=== PATIENT | male | born 1950 | race Two or more races ===

== ENCOUNTER 2016-08-05 14:13 | Emergency (ER) | payer BC, OTHER ==
[2016-08-05] MEDS ORDERED: Ketorolac 60 MG/2 ML SDV IM ONE (14:49)
--- NOTE | 2016-08-05 15:50 | EDM.PDOC ---
ED HPI Trauma - General Chief Complaint: Upper Extremity Injury/Pain Stated Complaint: HURT LEFT SHOULDER AT WORK Time Seen by Provider: 08/05/16 14:45 Source: Reports: Patient History Limitations: Reports: No limitations - History of Present Illness INITIAL COMMENTS - FREE TEXT/NARRATIVE: History of present illness: [66 year-old male comes in complaining of left-sided shoulder pain status post lifting frozen meat at work. Patient indicates that it hurts to move the arm in full range of motion indicates that he can bring elbow to midline but beyond that he needs to manually assist with opposing arm] Review of systems: As per history of present illness and below otherwise all systems reviewed and negative. Past medical history: As per history of present illness and as reviewed below otherwise noncontributory. Surgical history: As per history of present illness and as reviewed below otherwise noncontributory. Social history: No reported history of drug or alcohol abuse. Family history: As per history of present illness and as reviewed below otherwise noncontributory. Physical exam: HEENT: Atraumatic, normocephalic, pupils reactive, negative for conjunctival pallor or scleral icterus, mucous membranes moist, throat clear, neck supple, nontender, trachea midline. Lungs: Clear to auscultation, breath sounds equal bilaterally, chest nontender. Heart: S1S2, regular, negative for clicks, rubs, or JVD. Abdomen: Soft, nondistended, nontender. Negative for masses or hepatosplenomegaly. Negative for costovertebral tenderness. Pelvis: Stable nontender. Genitourinary: Deferred. Rectal: Deferred. Extremities: Atraumatic, negative for cords or calf pain. Neurovascular unremarkable. Neuro: Awake, alert, oriented. Cranial nerves II through XII unremarkable. Cerebellum unremarkable. Motor and sensory unremarkable throughout. Exam nonfocal. Global assessment was benign save as noted in history of present illness. Patient exhibits guarding and indications of discomfort with passive as well as active range of motion unable to left elbow above midline without significant statements and indications a pain. X-ray negative for acute bony abnormalities presence of degenerative osteophytic changes noted in the a.c. Diagnostics: [X-ray will show] Therapeutics: [Toradol] Impression: [Shoulder pain] Plan: [Meloxicam] Definitive disposition and diagnosis as appropriate pending reevaluation and review of above. Allergies/ADRs: Allergies No Known Allergies Allergy (Verified 08/05/16 14:32) Home Medications: Ambulatory Orders Meloxicam 7.5 mg PO BID #30 tablet 08/05/16 Past Medical History HEENT History: Reports: None Cardiovascular History: Reports: None Respiratory History: Reports: None Genitourinary History: Reports: None Musculoskeletal History: Reports: None Neurological History: Reports: None Psychiatric History: Reports: None Other Endocrine/Metabolic History: pt reports diabetes but does not take medication for this Hematologic History: Reports: None Immunologic History: Reports: None Oncologic (Cancer) History: Reports: None Dermatologic History: Reports: None - Infectious Disease History Infectious Disease History: Reports: None - Past Surgical History Head Surgeries/Procedures: Reports: None GI Surgical History: Reports: Appendectomy Social & Family History - Family History Family Medical History: Noncontributory - Tobacco Use Smoking Status *Q: Former Smoker Years of Tobacco use: 20 Used Tobacco, but Quit: Yes Month Tobacco Last Used: 1972 - Caffeine Use Caffeine Use: Reports: Coffee - Recreational Drug Use Recreational Drug Use: No Review of Systems - Review of Systems Review Of Systems: See Below (See history of present illness) Trauma Exam - Physical Exam Exam: See Below (See history of present illness) Course - Vital Signs Last Recorded V/S: Last Vital Signs Temp 36.6 C 08/05/16 14:23 Pulse 80 08/05/16 14:23 Resp 16 08/05/16 14:23 BP 146/75 H 08/05/16 14:23 Pulse Ox 98 08/05/16 14:23 - Orders/Labs/Meds Orders: Active Orders 24 hr Category Date Time Status Shoulder Comp Lt [CR] Stat Exams 08/05/16 14:50 Taken Meds: Medications Discontinued Medications Generic Name Dose Route Start Last Admin Trade Name Freq PRN Reason Stop Dose Admin Ketorolac Tromethamine 60 mg 08/05/16 14:49 08/05/16 15:16 Toradol IM 08/05/16 14:50 60 mg ONETIME ONE Administration Departure - Departure Time of Disposition: 15:59 Disposition: Home, Self-Care 01 Condition: good Clinical Impression: Shoulder pain Forms: ED Department Discharge Additional Instructions: The following information is given to patients seen in the emergency department who are being discharged to home. This information is to outline your options for follow-up care. We provide all patients seen in our emergency department with a follow-up referral. The need for follow-up, as well as the timing and circumstances, are variable depending upon the specifics of your emergency department visit. If you don't have a primary care physician on staff, we will provide you with a referral. We always advise you to contact your personal physician following an emergency department visit to inform them of the circumstance of the visit and for follow-up with them and/or the need for any referrals to a consulting specialist. The emergency department will also refer you to a specialist when appropriate. This referral assures that you have the opportunity for follow-up care with a specialist. All of these measure are taken in an effort to provide you with optimal care, which includes your follow-up. Under all circumstances we always encourage you to contact your private physician who remains a resource for coordinating your care. When calling for follow-up care, please make the office aware that this follow-up is from your recent emergency room visit. If for any reason you are refused follow-up, please contact the [facility] Emergency Department at and asked to speak to the emergency department charge nurse. Take medication as directed With PCP 1-2 days Return to ED as needed as discussed - My Orders Last 24 Hours: My Active Orders 08/05/16 14:50 Shoulder Comp Lt [CR] Stat - Assessment/Plan Last 24 Hours: My Active Orders 08/05/16 14:50 Shoulder Comp Lt [CR] Stat
[2016-08-05 16:16] VITALS: BP 136/65
--- NOTE | 2016-08-07 10:17 | CR ---
EXAM DATE: 08/05/16 PATIENT'S AGE: 66 Patient: ARTEM DOE Facility: [place], [place] Site . Site : 1950 Study: XRay Shoulder Left [id number] 3:04:26 PM Ordering Physician: Doctor Combs Final Report: HISTORY: Pain after lifting injury. Findings: Three views of the left shoulder are provided. There are no findings for fracture or dislocation. Mild degenerative change of the acromioclavicular joint is noted. No soft tissue abnormality is noted. Dictated by Nikko Morataya MD @ Aug 05 2016 3:46PM (Electronic Signature) Report Signed by Proxy and Original Signed Document filed in the Medical Record. MTDD
== END 2016-08-05 16:16 | disposition home or self-care (01) ==
LOC: MW.ED 14:13
DX: M25.512 Pain in left shoulder (principal); Z90.49 Acquired absence of other specified parts of digestive tract; Z87.891 Personal history of nicotine dependence
CPT/HCPCS: 73030; 96372; 99283; A4566; J1885

== ENCOUNTER 2016-09-05 12:31 | Inpatient (IN) | payer BC, OTHER ==
[2016-09-05] MEDS ORDERED: Sodium Chloride 0.9% 1,000 ML IV ONE ×3 (13:16→16:01)
[2016-09-05] MEDS ORDERED: Ondansetron 4 MG/2 ML SDV IVPUSH ONE ×2 (13:16→13:33)
[2016-09-05] MEDS ORDERED: Prochlorperazine 10 MG/2 ML SDV IVPUSH ONE (13:33)
--- NOTE | 2016-09-05 13:51 | EDM.PDOC ---
ED HPI GENERAL MEDICAL PROBLEM - General Chief Complaint: Gastrointestinal Problem Stated Complaint: STOMACHE,BACKACHE,DIARRHEA, N&v Time Seen by Provider: 09/05/16 13:10 Source of Information: Reports: Patient History Limitations: Reports: No Limitations - History of Present Illness INITIAL COMMENTS - FREE TEXT/NARRATIVE: History of present illness: [66-year-old male presenting with acute onset of nausea vomiting. Patient indicates he has abdominal pain that is radiating around into his back.] Review of systems: As per history of present illness and below otherwise all systems reviewed and negative. Past medical history: As per history of present illness and as reviewed below otherwise noncontributory. Surgical history: As per history of present illness and as reviewed below otherwise noncontributory. Social history: No reported history of drug or alcohol abuse. Family history: As per history of present illness and as reviewed below otherwise noncontributory. Physical exam: HEENT: Atraumatic, normocephalic, pupils reactive, negative for conjunctival pallor or scleral icterus, mucous membranes moist, throat clear, neck supple, nontender, trachea midline. Lungs: Clear to auscultation, breath sounds equal bilaterally, chest nontender. Heart: S1S2, regular, negative for clicks, rubs, or JVD. Abdomen: Firm slightly distended with diffuse non specific tenderness. Pt with active vomiting. Negative for masses or hepatosplenomegaly. Negative for costovertebral tenderness. Pelvis: Stable nontender. Genitourinary: Deferred. Rectal: Deferred. Extremities: Atraumatic, negative for cords or calf pain. Neurovascular unremarkable. Neuro: Awake, alert, oriented. Cranial nerves II through XII unremarkable. Cerebellum unremarkable. Motor and sensory unremarkable throughout. Exam nonfocal. Diagnostics: [CBC, CMP] Therapeutics: [IV fluid, Zofran, Compazine] Impression: [pancreatitis] Plan: [Admit to Dr. Thomas] Definitive disposition and diagnosis as appropriate pending reevaluation and review of above. Lower Abdominal Pain Score (Numeric/FACES): 10 - Related Data Allergies Allergy/AdvReac Type Severity Reaction Status Date / Time No Known Allergies Allergy Verified 08/05/16 14:32 Past Medical History HEENT History: Reports: None Cardiovascular History: Reports: None Respiratory History: Reports: None Genitourinary History: Reports: None Musculoskeletal History: Reports: None Neurological History: Reports: None Psychiatric History: Reports: None Other Endocrine/Metabolic History: pt reports diabetes but does not take medication for this Hematologic History: Reports: None Immunologic History: Reports: None Oncologic (Cancer) History: Reports: None Dermatologic History: Reports: None - Infectious Disease History Infectious Disease History: Reports: None - Past Surgical History Head Surgeries/Procedures: Reports: None GI Surgical History: Reports: Appendectomy Social & Family History - Family History Family Medical History: Noncontributory - Tobacco Use Smoking Status *Q: Never Smoker Years of Tobacco use: 20 Used Tobacco, but Quit: Yes Month Tobacco Last Used: 1972 Second Hand Smoke Exposure: No - Caffeine Use Caffeine Use: Reports: None - Recreational Drug Use Recreational Drug Use: No ED ROS GENERAL - Review of Systems Review Of Systems: See Below (See history of present illness) ED EXAM, GENERAL - Physical Exam Exam: See Below (See history of present illness) Course - Vital Signs Last Recorded V/S: Last Vital Signs Temp Pulse 101 H 09/05/16 14:35 Resp 19 09/05/16 14:35 BP 150/69 H 09/05/16 14:35 Pulse Ox 95 09/05/16 14:35 - Orders/Labs/Meds Orders: Active Orders 24 hr Category Date Time Status AMYLASE [CHEM] Stat Lab 09/05/16 12:50 Results LIPASE [CHEM] Stat Lab 09/05/16 12:50 Results Sodium Chloride 0.9% [Normal Saline] 1,000 ml Med 09/05/16 16:01 Ordered IV STAT Medication Orders Sodium Chloride (Normal Saline) 1,000 mls @ 999 mls/hr IV STAT ONE Stop: 09/05/16 17:01 Labs: Laboratory Tests 09/05/16 09/05/16 09/05/16 Range/Units 12:50 12:50 12:50 WBC 7.57 (4.0-11.0) K/uL RBC 4.65 (4.50-5.90) M/uL Hgb 13.4 (13.0-17.0) g/dL Hct 38.6 (38.0-50.0) % MCV 83.0 (80.0-98.0) fL MCH 28.8 (27.0-32.0) pg MCHC 34.7 (31.0-37.0) g/dL RDW Std Deviation 40.5 (28.0-62.0) fl RDW Coeff of [place] 13 (11.0-15.0) % Plt Count 282 (150-400) K/uL MPV 10.30 (7.40-12.00) fL Neut % (Auto) 86.3 H (48.0-80.0) % Lymph % (Auto) 12.4 L (16.0-40.0) % [place] % (Auto) 0.8 (0.0-15.0) % Eos % (Auto) 0.4 (0.0-7.0) % Baso % (Auto) 0.1 (0.0-1.5) % Neut # (Auto) 6.5 H (1.4-5.7) K/uL Lymph # (Auto) 0.9 (0.6-2.4) K/uL [place] # (Auto) 0.1 (0.0-0.8) K/uL Eos # (Auto) 0.0 (0.0-0.7) K/uL Baso # (Auto) 0.0 (0.0-0.1) K/uL Nucleated RBC % 0.0 /100WBC Nucleated RBCs # 0 K/uL Sodium 140 (136-146) mmol/L Potassium 3.2 L (3.5-5.1) mmol/L Chloride 106 (98-110) mmol/L Carbon Dioxide 21 (21-31) mmol/L BUN 30 H (6.0-23.0) mg/dL Creatinine 1.4 (0.6-1.5) mg/dL Est Cr Clr Drug Dosing TNP Estimated GFR (MDRD) 51.0 ml/min Glucose 330 H (60-110) mg/dL Calcium 9.5 (8.8-10.8) mg/dL Total Bilirubin 1.4 (0.1-1.5) mg/dL AST 217 H (5-40) IU/L ALT 138 H (8-54) IU/L Alkaline Phosphatase 80 (40-150) Total Protein 7.4 (6.0-8.0) g/dL Albumin 4.0 (3.4-4.8) g/dL Globulin 3.4 (2.0-3.5) g/dL Albumin/Globulin Ratio 1.2 L (1.3-2.8) Amylase 4752 H (10-90) U/L Meds: Medications Generic Name Dose Route Start Last Admin Trade Name Freq PRN Reason Stop Dose Admin Sodium Chloride 1,000 mls @ 999 mls/hr 09/05/16 16:01 Normal Saline IV 09/05/16 17:01 STAT ONE Discontinued Medications Generic Name Dose Route Start Last Admin Trade Name Freq PRN Reason Stop Dose Admin Sodium Chloride 1,000 mls @ 999 mls/hr 09/05/16 13:16 09/05/16 13:30 Normal Saline IV 09/05/16 14:16 999 mls/hr STAT ONE Administration Sodium Chloride 1,000 mls @ 999 mls/hr 09/05/16 13:16 09/05/16 13:38 Normal Saline IV 09/05/16 14:16 Not Given .Bolus ONE Ondansetron HCl 4 mg 09/05/16 13:16 09/05/16 13:31 Zofran IVPUSH 09/05/16 13:17 4 mg ONETIME ONE Administration Ondansetron HCl 4 mg 09/05/16 13:33 09/05/16 13:51 Zofran IVPUSH 09/05/16 13:34 4 mg ONETIME ONE Administration Prochlorperazine Edisylate 5 mg 09/05/16 13:33 09/05/16 13:51 Compazine IVPUSH 09/05/16 13:34 5 mg ONETIME ONE Administration Departure - Departure Time of Disposition: 16:11 Disposition: Admitted As Inpatient 68 Condition: good Clinical Impression: Pancreatitis - Discharge Information Forms: ED Department Discharge - My Orders Last 24 Hours: My Active Orders 09/05/16 12:50 AMYLASE [CHEM] Stat LIPASE [CHEM] Stat 09/05/16 16:01 Sodium Chloride 0.9% [Normal Saline] 1,000 ml IV STAT - Assessment/Plan Last 24 Hours: My Active Orders 09/05/16 12:50 AMYLASE [CHEM] Stat LIPASE [CHEM] Stat 09/05/16 16:01 Sodium Chloride 0.9% [Normal Saline] 1,000 ml IV STAT
[2016-09-05 14:30] LABS: CHLORIDE,CL 106 mmol/L (98-110); SODIUM,NA 140 mmol/L (136-146)
--- NOTE | 2016-09-05 14:58 | CT ---
CT of the abdomen and pelvis without contrast. HISTORY: Pain TECHNIQUE: Axial CT images were obtained of the abdomen and pelvis without contrast. Coronal and sag ittal reconstructions obtained. FINDINGS: The lung bases are clear, no pleural effusion. The liver, spleen, and adrenal glands appear unremarkable for noncontrast examination. There is mode rate peripancreatic stranding without an organized fluid collection. Trace abdominal ascites. Small duodenal diverticulum is noted. The gallbladder appears normal. There is no bulky retroperitoneal l ymphadenopathy. There are no calcifications noted within the kidneys or along the courses of the ureters bilaterally . The large and small bowel are normal in caliber without evidence of obstruction. Mild diverticulosis without evidence of diverticulitis. There is no bulky pelvic lymphadenopathy. No free fluid. No vadim e air. The urinary bladder appears normal. Prostate is mildly prominent. The visualized osseous structures appear normal. IMPRESSION: 1. Pancreatitis without evidence of a peripancreatic fluid collection. 2. Mild diverticulosis without evidence of diverticulitis.
[2016-09-05] MEDS ORDERED: Morphine 10 MG/ML Syringe IVPUSH PRN (16:36)
[2016-09-05] MEDS ORDERED: Ondansetron 4 MG/2 ML SDV IVPUSH PRN (16:36)
[2016-09-05] MEDS ORDERED: LORazepam 2 MG/ML MDV IVPUSH PRN (16:40)
[2016-09-05] MEDS ORDERED: Thiamine 200 MG/2 ML MDV IV SCH (16:45)
--- NOTE | 2016-09-05 16:45 | PCM.HP ---
H&P History of Present Illness - General Admit Problem/Dx: Admission Diagnosis/Problem Admission Diagnosis/Problem Pancreatitis - History of Present Illness Initial Comments - Free Text/Narative: 66 yo male with pmh of diabetes who presents with one day history of abdominal pain, nausea and vomiting. Patient reports he seldom drinks but did have four beers this weekend. He was evaluated in the ED with CT scan which reported pancreatitis. Lower Abdominal Pain Score (Numeric/FACES): 10 - Related Data Allergies/Adverse Reactions: Allergies Allergy/AdvReac Type Severity Reaction Status Date / Time No Known Allergies Allergy Verified 08/05/16 14:32 Past Medical History HEENT History: Reports: None Cardiovascular History: Reports: None Respiratory History: Reports: None Genitourinary History: Reports: None Musculoskeletal History: Reports: None Neurological History: Reports: None Psychiatric History: Reports: None Other Endocrine/Metabolic History: pt reports diabetes but does not take medication for this Hematologic History: Reports: None Immunologic History: Reports: None Oncologic (Cancer) History: Reports: None Dermatologic History: Reports: None - Infectious Disease History Infectious Disease History: Reports: None - Past Surgical History Head Surgeries/Procedures: Reports: None GI Surgical History: Reports: Appendectomy Social & Family History - Family History Family Medical History: Noncontributory - Tobacco Use Smoking Status *Q: Never Smoker Years of Tobacco use: 20 Used Tobacco, but Quit: Yes Month Tobacco Last Used: 1972 Second Hand Smoke Exposure: No - Caffeine Use Caffeine Use: Reports: None - Recreational Drug Use Recreational Drug Use: No H&P Review of Systems - Review of Systems: Review Of Systems: See Below General: Reports: No Symptoms HEENT: Reports: No Symptoms Pulmonary: Reports: No Symptoms Cardiovascular: Reports: No Symptoms Gastrointestinal: Reports: Abdominal Pain, Nausea, Vomiting. Denies: Black Stool, Bloody Stool, Diarrhea Genitourinary: Reports: No Symptoms Musculoskeletal: Reports: No Symptoms Skin: Reports: No Symptoms Psychiatric: Reports: No Symptoms Neurological: Reports: No Symptoms Hematologic/Lymphatic: Reports: No Symptoms Immunologic: Reports: No Symptoms Exam - Exam Exam: See Below - Vital Signs Vital Signs: Last Vital Signs Temp Pulse 101 H 09/05/16 14:35 Resp 19 09/05/16 14:35 BP 150/69 H 09/05/16 14:35 Pulse Ox 95 09/05/16 14:35 Weight: 72.3 kg - Exam General: Alert, Oriented, 4 Lungs: Clear to Auscultation, Normal Respiratory Effort Cardiovascular: Regular Rate, Regular Rhythm Abdomen: Normal Bowel Sounds, Tenderness (epigstric). No: Guarding, Rigidity Extremities: No: Edema Skin: Warm, Dry, Intact - Patient Data Lab Results last 24 hrs: Laboratory Results - last 24 hr 09/05/16 09/05/16 09/05/16 Range/Units 12:50 12:50 12:50 WBC 7.57 (4.0-11.0) K/uL RBC 4.65 (4.50-5.90) M/uL Hgb 13.4 (13.0-17.0) g/dL Hct 38.6 (38.0-50.0) % MCV 83.0 (80.0-98.0) fL MCH 28.8 (27.0-32.0) pg MCHC 34.7 (31.0-37.0) g/dL RDW Std Deviation 40.5 (28.0-62.0) fl RDW Coeff of [place] 13 (11.0-15.0) % Plt Count 282 (150-400) K/uL MPV 10.30 (7.40-12.00) fL Neut % (Auto) 86.3 H (48.0-80.0) % Lymph % (Auto) 12.4 L (16.0-40.0) % [place] % (Auto) 0.8 (0.0-15.0) % Eos % (Auto) 0.4 (0.0-7.0) % Baso % (Auto) 0.1 (0.0-1.5) % Neut # (Auto) 6.5 H (1.4-5.7) K/uL Lymph # (Auto) 0.9 (0.6-2.4) K/uL [place] # (Auto) 0.1 (0.0-0.8) K/uL Eos # (Auto) 0.0 (0.0-0.7) K/uL Baso # (Auto) 0.0 (0.0-0.1) K/uL Nucleated RBC % 0.0 /100WBC Nucleated RBCs # 0 K/uL Sodium 140 (136-146) mmol/L Potassium 3.2 L (3.5-5.1) mmol/L Chloride 106 (98-110) mmol/L Carbon Dioxide 21 (21-31) mmol/L BUN 30 H (6.0-23.0) mg/dL Creatinine 1.4 (0.6-1.5) mg/dL Est Cr Clr Drug Dosing TNP Estimated GFR (MDRD) 51.0 ml/min Glucose 330 H (60-110) mg/dL Calcium 9.5 (8.8-10.8) mg/dL Total Bilirubin 1.4 (0.1-1.5) mg/dL AST 217 H (5-40) IU/L ALT 138 H (8-54) IU/L Alkaline Phosphatase 80 (40-150) Total Protein 7.4 (6.0-8.0) g/dL Albumin 4.0 (3.4-4.8) g/dL Globulin 3.4 (2.0-3.5) g/dL Albumin/Globulin Ratio 1.2 L (1.3-2.8) Amylase 4752 H (10-90) U/L Lipase 49873 H (7-80) U/L Result Diagrams: 09/06/16 04:50 09/06/16 04:50 *Q Meaningful Use (ADM) - VTE *Q VTE Criteria *Q: - Stroke *Q Stroke Criteria *Q: - AMI *Q AMI Criteria *Q: Problem List Initiated/Reviewed/Updated: Yes Orders Last 24hrs: Active Orders 24 hr Category Date Time Status Accu Check [Blood Glucose Check, Bedside] [RC] Q6HR Care 09/05/16 16:39 Ordered Antiembolic Devices [RC] PER UNIT ROUTINE Care 09/05/16 16:37 Ordered Intake and Output [RC] QSHIFT Care 09/05/16 16:37 Ordered Oxygen Therapy [RC] PRN Care 09/05/16 16:36 Ordered Up ad Antonina [RC] ASDIRECTED Care 09/05/16 16:36 Ordered VTE/DVT Education [RC] PER UNIT ROUTINE Care 09/05/16 16:36 Ordered Vital Signs [RC] Q4H Care 09/05/16 16:36 Ordered Nothing per Oral Now Diet [DIET] Diet 09/05/16 Breakfast Ordered Abdomen Comp [US] Stat Exams 09/05/16 16:38 Ordered CBC W/O DIFF,HEMOGRAM [HEME] AM Lab 09/06/16 05:11 Ordered CBC W/O DIFF,HEMOGRAM [HEME] AM Lab 09/07/16 05:11 Ordered CBC W/O DIFF,HEMOGRAM [HEME] AM Lab 09/08/16 05:11 Ordered COMPREHENSIVE METABOLIC PN,CMP [CHEM] AM Lab 09/06/16 05:11 Ordered COMPREHENSIVE METABOLIC PN,CMP [CHEM] AM Lab 09/07/16 05:11 Ordered COMPREHENSIVE METABOLIC PN,CMP [CHEM] AM Lab 09/08/16 05:11 Ordered LIPID PANEL [CHEM] Stat Lab 09/05/16 16:38 Ordered Folic Acid Med 09/05/16 16:45 Ordered 1 mg SUBCUT DAILY Insulin Aspart [NovoLOG] Med 09/05/16 16:45 Ordered See Protocol SUBCUT Q6H LORazepam [Ativan] Med 09/05/16 16:40 Ordered See Protocol IVPUSH Q4H PRN Morphine Med 09/05/16 16:36 Ordered 2 mg IVPUSH Q2H PRN Ondansetron [Zofran] Med 09/05/16 16:36 Ordered 4 mg IVPUSH Q4H PRN Sodium Chloride 0.9% [Normal Saline] 1,000 ml Med 09/05/16 16:45 Ordered IV ASDIRECTED Sodium Chloride 0.9% [Normal Saline] 1,000 ml Med 09/05/16 16:01 Active IV STAT Thiamine [Vitamin B-1] Med 09/05/16 16:45 Ordered 100 mg IV DAILY Sequential Compression Device [OM.PC] Per Unit Routine Oth 09/05/16 16:37 Ordered Resuscitation Status Routine Resus Stat 09/05/16 16:36 Ordered Medication Orders Folic Acid (Folic Acid) 1 mg SUBCUT DAILY BEE Sodium Chloride (Normal Saline) 1,000 mls @ 999 mls/hr IV STAT ONE Stop: 09/05/16 17:01 Last Admin: 09/05/16 16:37 Dose: 999 mls/hr Sodium Chloride (Normal Saline) 1,000 mls @ 250 mls/hr IV ASDIRECTED BEE Insulin Aspart (Novolog) 0 unit SUBCUT Q6H BEE PRN Reason: Protocol Lorazepam (Ativan) 0 mg IVPUSH Q4H PRN; Protocol PRN Reason: Agitation Morphine Sulfate (Morphine) 2 mg IVPUSH Q2H PRN PRN Reason: Pain (severe 7-10) Stop: 09/06/16 16:37 Ondansetron HCl (Zofran) 4 mg IVPUSH Q4H PRN PRN Reason: Nausea Thiamine HCl (Vitamin B-1) 100 mg IV DAILY [facility] Assessment/Plan Comment:: 66 yo male admitted with acute pancreatitis. We will treat with bowel rest, IV fluid rescucitation and prn morphine for pain management. We will check lipid panel and abdominal U/S to evaluated causes of his pancreatitis.
[2016-09-05] MEDS: Sodium Chloride 0.9% 1,000 ML IV SCH (18:10)
[2016-09-05] MEDS: Insulin Aspart 100 Units/ML 3 ML Pen SUBCUT SCH ×2 (18:11→22:58)
[2016-09-05] MEDS: Folic Acid 50 MG/10 ML MDV SUBCUT SCH (18:12)
[2016-09-05] MEDS ORDERED: Thiamine 100 MG in Sodium Chloride 0.9% 100 ML IV ONE (18:45)
[2016-09-05] MEDS ORDERED: Sodium Chloride 0.9% with KCl 1,000 ML IV SCH (19:45)
[2016-09-06] MEDS: Sodium Chloride 0.9% 1,000 ML IV SCH (03:11)
[2016-09-06] MEDS: Morphine 2 MG/ML Syringe IVPUSH PRN ×2 (03:34→22:37)
[2016-09-06] MEDS: Insulin Aspart 100 Units/ML 3 ML Pen SUBCUT SCH ×4 (04:54→22:35)
[2016-09-06 05:47] LABS: CHLORIDE,CL 119 mmol/L (98-110); SODIUM,NA 147 mmol/L (136-146)
--- NOTE | 2016-09-06 08:10 | PCM.PN ---
- General Info Date of Service: 09/06/16 Admission Dx/Problem (Free Text): Admission Diagnosis/Problem Admission Diagnosis/Problem Pancreatitis Subjective Update: Reports feeling better this morning. No further nausea since in the ED. Abodminal pain is ok, about 3-4/10. Have loose stools, reports yesterday they were white in color, today they are slight brownish in color. Denies any recent questionable food or sushi intact, no recent antibiotics and no recent travel outside of the [facility]. Denies chest pain or SOB. No Palpitations. Functional Status: Reports: pain controlled, ambulating, urinating - Review of Systems General: Reports: No Symptoms HEENT: Reports: no symptoms Pulmonary: Reports: no symptoms. Denies: shortness of breath, cough, sputum Cardiovascular: Denies: Chest Pain, Edema Gastrointestinal: Reports: Abdominal pain (diffuse tenderness, 3-4/10), Flatus. Denies: Nausea, Vomiting Genitourinary: Reports: no symptoms. Denies: dysuria, frequency, flank pain Musculoskeletal: Reports: no symptoms Skin: Reports: no symptoms Neurological: Reports: No Symptoms Psychiatric: Reports: no symptoms - Patient Data Vitals - most recent: Last Vital Signs Temp 99.3 F 09/06/16 04:00 Pulse 99 09/06/16 04:00 Resp 18 09/06/16 04:00 BP 118/57 L 09/06/16 04:00 Pulse Ox 93 L 09/06/16 04:00 Weight - most recent: 71.441 kg I&O - last 24 hours: Intake & Output 09/05/16 09/06/16 09/06/16 22:59 06:59 14:59 Intake Total 701 980 Output Total 400 Balance 701 580 Lab Results last 24 hrs: Laboratory Results - last 24 hr 09/05/16 09/06/16 09/06/16 Range/Units 22:39 04:45 04:50 WBC 12.68 H (4.0-11.0) K/uL RBC 3.99 L (4.50-5.90) M/uL Hgb 11.6 L (13.0-17.0) g/dL Hct 33.0 L (38.0-50.0) % MCV 82.7 (80.0-98.0) fL MCH 29.1 (27.0-32.0) pg MCHC 35.2 (31.0-37.0) g/dL RDW Std Deviation 41.4 (28.0-62.0) fl RDW Coeff of [place]is 14 (11.0-15.0) % Plt Count 226 (150-400) K/uL MPV 10.10 (7.40-12.00) fL Neut % (Auto) 88.6 H (48.0-80.0) % Lymph % (Auto) 6.4 L (16.0-40.0) % [place] % (Auto) 4.9 (0.0-15.0) % Eos % (Auto) 0.0 (0.0-7.0) % Baso % (Auto) 0.1 (0.0-1.5) % Neut # (Auto) 11.2 H (1.4-5.7) K/uL Lymph # (Auto) 0.8 (0.6-2.4) K/uL [place] # (Auto) 0.6 (0.0-0.8) K/uL Eos # (Auto) 0.0 (0.0-0.7) K/uL Baso # (Auto) 0.0 (0.0-0.1) K/uL Nucleated RBC % 0.0 /100WBC Nucleated RBCs # 0 K/uL Sodium (136-146) mmol/L Potassium (3.5-5.1) mmol/L Chloride (98-110) mmol/L Carbon Dioxide (21-31) mmol/L BUN (6.0-23.0) mg/dL Creatinine (0.6-1.5) mg/dL Est Cr Clr Drug Dosing mL/min Estimated GFR (MDRD) ml/min Glucose (60-110) mg/dL POC Glucose 287 H 235 H (60-110) mg/dL Calcium (8.8-10.8) mg/dL Total Bilirubin (0.1-1.5) mg/dL AST (5-40) IU/L ALT (8-54) IU/L Alkaline Phosphatase (40-150) Total Protein (6.0-8.0) g/dL Albumin (3.4-4.8) g/dL Globulin (2.0-3.5) g/dL Albumin/Globulin Ratio (1.3-2.8) 05/24/17 Range/Units 04:50 WBC (4.0-11.0) K/uL RBC (4.50-5.90) M/uL Hgb (13.0-17.0) g/dL Hct (38.0-50.0) % MCV (80.0-98.0) fL MCH (27.0-32.0) pg MCHC (31.0-37.0) g/dL RDW Std Deviation (28.0-62.0) fl RDW Coeff of [place] (11.0-15.0) % Plt Count (150-400) K/uL MPV (7.40-12.00) fL Neut % (Auto) (48.0-80.0) % Lymph % (Auto) (16.0-40.0) % [place] % (Auto) (0.0-15.0) % Eos % (Auto) (0.0-7.0) % Baso % (Auto) (0.0-1.5) % Neut # (Auto) (1.4-5.7) K/uL Lymph # (Auto) (0.6-2.4) K/uL [place] # (Auto) (0.0-0.8) K/uL Eos # (Auto) (0.0-0.7) K/uL Baso # (Auto) (0.0-0.1) K/uL Nucleated RBC % /100WBC Nucleated RBCs # K/uL Sodium 147 H (136-146) mmol/L Potassium 3.5 (3.5-5.1) mmol/L Chloride 119 H (98-110) mmol/L Carbon Dioxide 16 L (21-31) mmol/L BUN 24 H (6.0-23.0) mg/dL Creatinine 1.0 (0.6-1.5) mg/dL Est Cr Clr Drug Dosing 64.92 mL/min Estimated GFR (MDRD) > 60.0 ml/min Glucose 280 H (60-110) mg/dL POC Glucose (60-110) mg/dL Calcium 8.2 L (8.8-10.8) mg/dL Total Bilirubin 2.8 H (0.1-1.5) mg/dL AST 167 H (5-40) IU/L ALT 227 H (8-54) IU/L Alkaline Phosphatase 79 (40-150) Total Protein 5.7 L (6.0-8.0) g/dL Albumin 3.3 L (3.4-4.8) g/dL Globulin 2.4 (2.0-3.5) g/dL Albumin/Globulin Ratio 1.4 (1.3-2.8) Med Orders - Current: Current Medications Folic Acid (Folic Acid) 1 mg SUBCUT DAILY [facility] Last Admin: 09/05/16 18:12 Dose: 1 mg Lactated Ringer's (Ringers, Lactated) 1,000 mls @ 150 mls/hr IV ASDIRECTED [facility] Insulin Aspart (Novolog) 0 unit SUBCUT Q6H BEE PRN Reason: Protocol Last Admin: 09/06/16 04:54 Dose: 2 units Lorazepam (Ativan) 0 mg IVPUSH Q4H PRN; Protocol PRN Reason: Agitation Morphine Sulfate (Morphine) 2 mg IVPUSH Q2H PRN PRN Reason: Pain (severe 7-10) Last Admin: 09/06/16 03:34 Dose: 2 mg Ondansetron HCl (Zofran) 4 mg IVPUSH Q4H PRN PRN Reason: Nausea Discontinued Medications Sodium Chloride (Normal Saline) 1,000 mls @ 999 mls/hr IV STAT ONE Stop: 09/05/16 14:16 Last Admin: 09/05/16 13:30 Dose: 999 mls/hr Sodium Chloride (Normal Saline) 1,000 mls @ 999 mls/hr IV .Bolus ONE Stop: 09/05/16 14:16 Last Admin: 09/05/16 13:38 Dose: Not Given Sodium Chloride (Normal Saline) 1,000 mls @ 999 mls/hr IV STAT ONE Stop: 09/05/16 17:01 Last Admin: 09/05/16 16:37 Dose: 999 mls/hr Sodium Chloride (Normal Saline) 1,000 mls @ 150 mls/hr IV ASDIRECTED [facility] Last Admin: 09/06/16 03:11 Dose: 250 mls/hr Thiamine HCl 100 mg/ Sodium (Chloride) 101 mls @ 202 mls/hr IV ONETIME ONE Stop: 09/05/16 19:14 Last Admin: 09/05/16 20:04 Dose: 202 mls/hr Potassium Chloride/Sodium Chloride (Normal Saline With 40 Meq Kcl) 1,000 mls @ 150 mls/hr IV ASDIRECTED [facility] Stop: 09/06/16 02:24 Last Admin: 09/05/16 20:13 Dose: 150 mls/hr Morphine Sulfate (Morphine) 2 mg IVPUSH Q2H PRN PRN Reason: Pain (severe 7-10) Stop: 09/06/16 16:37 Last Admin: 09/05/16 20:47 Dose: 2 mg Ondansetron HCl (Zofran) 4 mg IVPUSH ONETIME ONE Stop: 09/05/16 13:17 Last Admin: 09/05/16 13:31 Dose: 4 mg Ondansetron HCl (Zofran) 4 mg IVPUSH ONETIME ONE Stop: 09/05/16 13:34 Last Admin: 09/05/16 13:51 Dose: 4 mg Prochlorperazine Edisylate (Compazine) 5 mg IVPUSH ONETIME ONE Stop: 09/05/16 13:34 Last Admin: 09/05/16 13:51 Dose: 5 mg Thiamine HCl (Vitamin B-1) 100 mg IV DAILY [facility] Last Admin: 09/05/16 18:46 Dose: Not Given - Exam General: alert, oriented, cooperative, no acute distress Neck: supple Lungs: Clear to auscultation, Normal respiratory effort Cardiovascular: Regular Rate, Regular Rhythm Abdomen: bowel sounds present, soft, no distension, tenderness (diffuse, more located RUQ and epigastric regions.) (Male) Exam: Other (urine noted to be dark in color) Extremities: no edema, normal pulses Neurological: no new focal deficit Psy/Mental Status: alert, normal affect, normal mood - Problem List & Annotations (1) Acute pancreatitis SNOMED Code(s): 125208887 Code(s): K85.90 - ACUTE PANCREATITIS WITHOUT NECROSIS OR INFECTION, UNSP Status: Acute Current Visit: Yes Qualifiers: Pancreatitis type: biliary Acute pancreatitis complication: no infection or necrosis Qualified Code(s): K85.10 - Biliary acute pancreatitis without necrosis or infection - Problem List Review Problem List Initiated/Reviewed/Updated: Yes - My Orders Last 24 Hours: My Active Orders 09/06/16 08:15 Lactated Ringers [Ringers, Lactated] 1,000 ml IV ASDIRECTED - Plan Plan:: 66 yo male admitted with acute pancreatitis. 1. Acute pancreatitis: Etiology unclear, but may be due to biliary obstruction or stone. Continue with bowel rest, IV fluid resuscitation and prn morphine for pain management. Triglycerides WNL and abdominal U/S revealed slightly dilated common bile duct, 8.7 mm. Hx of white stools. Bilirubin elevated today, 2.8, AST 167 and ALT 227. Slight leukocytosis noted this am, will monitor. Check lipase in am. 2. JAMEY: Improving with fluids, BUN 24 Cr 1.0 VTE prophylaxis: SCDs Dispo: 2-3 days pending improvement.
[2016-09-06] MEDS: Folic Acid 50 MG/10 ML MDV SUBCUT SCH (08:40)
[2016-09-06] MEDS: Lactated Ringers 1,000 ML IV SCH ×3 (08:42→22:35)
--- NOTE | 2016-09-06 13:19 | US ---
EXAM DATE: 09/05/16 PATIENT'S AGE: 66 Patient: ARTEM DOE Facility: [place], [place] Site . Site : [id number] Study: US Abdomen [id number] 5:45:44 PM Ordering Physician: Doctor Combs Final Report: INDICATION: Pancreatitis. ABDOMEN ULTRASOUND Technique: Multiple sonographic images of the upper abdomen were performed. Findings: The liver appears normal in size and contour and is homogeneous with no focal abnormality. The gallbladder shows no stones, wall thickening, or pericholecystic fluid. There was a positive sonographic Santana`s sign, according to the technologist. No intrahepatic biliary dilatation is identified but the common bile duct is slightly dilated, measuring up to 8.7 mm in diameter. The pancreas as visualized shows a normal sonographic appearance. The abdominal aorta shows no aneurysm. The kidneys appear normal bilaterally with no mass or hydronephrosis. The spleen is in the upper normal range for size, measuring 13 centimeters in length. IMPRESSION: 1. No cholelithiasis identified. 2. Positive sonographic Santana`s sign. No other sonographic findings to suggest cholecystitis. 3. Mildly dilated common bile duct measuring 8.7 millimeters in diameter. HAILEE HUNTER MD [employer] Dictated by Yaniv Hunter MD @ 09/05/2016 6:21:34 PM Dictated by: Yaniv Hunter MD @ 09/05/2016 18:22:07 (Electronic Signature) Report Signed by Proxy. CYNDEE
[2016-09-07] MEDS: Insulin Aspart 100 Units/ML 3 ML Pen SUBCUT SCH ×3 (04:50→17:10)
[2016-09-07] MEDS: Lactated Ringers 1,000 ML IV SCH ×4 (04:53→23:52)
[2016-09-07 05:33] LABS: CHLORIDE,CL 115 mmol/L (98-110); SODIUM,NA 141 mmol/L (136-146)
--- NOTE | 2016-09-07 07:52 | PCM.PN ---
- General Info Date of Service: 09/07/16 Admission Dx/Problem (Free Text): Admission Diagnosis/Problem Admission Diagnosis/Problem Pancreatitis Subjective Update: Continues to feel improved today. Continues to have loose stools frequently and some incontinence because it comes on so fast. Abdominal pain is "almost gone". No nausea noted. Denies chest pain or SOB. Functional Status: Reports: pain controlled, tolerating diet, ambulating, urinating - Review of Systems General: Reports: No Symptoms. Denies: Fever HEENT: Reports: no symptoms. Denies: headaches, sinus congestion, sore throat Pulmonary: Reports: no symptoms. Denies: shortness of breath, cough, sputum Cardiovascular: Reports: No Symptoms. Denies: Chest Pain, Palpitations, Edema Gastrointestinal: Reports: Abdominal pain ("almost gone"), Diarrhea. Denies: Nausea, Vomiting Genitourinary: Reports: no symptoms. Denies: dysuria, frequency, burning Musculoskeletal: Reports: no symptoms Skin: Reports: no symptoms Neurological: Reports: No Symptoms Psychiatric: Reports: no symptoms - Patient Data Vitals - most recent: Last Vital Signs Temp 98.8 F 09/07/16 07:00 Pulse 88 09/07/16 07:00 Resp 18 09/07/16 07:00 BP 143/71 H 09/07/16 07:00 Pulse Ox 95 09/07/16 07:00 Weight - most recent: 72.3 kg I&O - last 24 hours: Intake & Output 09/06/16 09/07/16 09/07/16 22:59 06:59 14:59 Intake Total 1014 2810 Output Total 850 605 Balance 164 2205 Lab Results last 24 hrs: Laboratory Results - last 24 hr 09/06/16 09/06/16 09/06/16 Range/Units 10:24 17:04 22:21 WBC (4.0-11.0) K/uL RBC (4.50-5.90) M/uL Hgb (13.0-17.0) g/dL Hct (38.0-50.0) % MCV (80.0-98.0) fL MCH (27.0-32.0) pg MCHC (31.0-37.0) g/dL RDW Std Deviation (28.0-62.0) fl RDW Coeff of Glenis (11.0-15.0) % Plt Count (150-400) K/uL MPV (7.40-12.00) fL Neut % (Auto) (48.0-80.0) % Lymph % (Auto) (16.0-40.0) % [place] % (Auto) (0.0-15.0) % Eos % (Auto) (0.0-7.0) % Baso % (Auto) (0.0-1.5) % Neut # (Auto) (1.4-5.7) K/uL Lymph # (Auto) (0.6-2.4) K/uL [place] # (Auto) (0.0-0.8) K/uL Eos # (Auto) (0.0-0.7) K/uL Baso # (Auto) (0.0-0.1) K/uL Nucleated RBC % /100WBC Nucleated RBCs # K/uL Sodium (136-146) mmol/L Potassium (3.5-5.1) mmol/L Chloride (98-110) mmol/L Carbon Dioxide (21-31) mmol/L BUN (6.0-23.0) mg/dL Creatinine (0.6-1.5) mg/dL Est Cr Clr Drug Dosing mL/min Estimated GFR (MDRD) ml/min Glucose (60-110) mg/dL POC Glucose 221 H 176 H 162 H (60-110) mg/dL Calcium (8.8-10.8) mg/dL Total Bilirubin (0.1-1.5) mg/dL AST (5-40) IU/L ALT (8-54) IU/L Alkaline Phosphatase (40-150) Total Protein (6.0-8.0) g/dL Albumin (3.4-4.8) g/dL Globulin (2.0-3.5) g/dL Albumin/Globulin Ratio (1.3-2.8) Lipase (7-80) U/L 09/07/16 09/07/16 09/07/16 Range/Units 04:44 04:44 04:44 WBC 10.93 (4.0-11.0) K/uL RBC 3.65 L (4.50-5.90) M/uL Hgb 10.4 L (13.0-17.0) g/dL Hct 30.2 L (38.0-50.0) % MCV 82.7 (80.0-98.0) fL MCH 28.5 (27.0-32.0) pg MCHC 34.4 (31.0-37.0) g/dL RDW Std Deviation 43.0 (28.0-62.0) fl RDW Coeff of Glenis 14 (11.0-15.0) % Plt Count 187 (150-400) K/uL MPV 10.00 (7.40-12.00) fL Neut % (Auto) 82.5 H (48.0-80.0) % Lymph % (Auto) 12.5 L (16.0-40.0) % [place] % (Auto) 3.8 (0.0-15.0) % Eos % (Auto) 1.0 (0.0-7.0) % Baso % (Auto) 0.2 (0.0-1.5) % Neut # (Auto) 9.0 H (1.4-5.7) K/uL Lymph # (Auto) 1.4 (0.6-2.4) K/uL [place] # (Auto) 0.4 (0.0-0.8) K/uL Eos # (Auto) 0.1 (0.0-0.7) K/uL Baso # (Auto) 0.0 (0.0-0.1) K/uL Nucleated RBC % 0.0 /100WBC Nucleated RBCs # 0 K/uL Sodium 141 (136-146) mmol/L Potassium 3.2 L (3.5-5.1) mmol/L Chloride 115 H (98-110) mmol/L Carbon Dioxide 18 L (21-31) mmol/L BUN 16 (6.0-23.0) mg/dL Creatinine 0.8 (0.6-1.5) mg/dL Est Cr Clr Drug Dosing 81.15 mL/min Estimated GFR (MDRD) > 60.0 ml/min Glucose 150 H (60-110) mg/dL POC Glucose 133 H (60-110) mg/dL Calcium 7.9 L (8.8-10.8) mg/dL Total Bilirubin 1.6 H (0.1-1.5) mg/dL AST 44 H (5-40) IU/L ALT 128 H (8-54) IU/L Alkaline Phosphatase 78 (40-150) Total Protein 5.3 L (6.0-8.0) g/dL Albumin 3.0 L (3.4-4.8) g/dL Globulin 2.3 (2.0-3.5) g/dL Albumin/Globulin Ratio 1.3 (1.3-2.8) Lipase 997 H (7-80) U/L Keo Results last 24 hrs: Microbiology 09/06/16 12:03 Clostridium difficile Toxin A&B (M) - Final Stool / Feces Negative for C.Diff Toxin/AG 09/06/16 12:03 Campylobacter Antigen Assay - Final Stool / Feces NEGATIVE [facility]AMP[facility]LOBACTER AG Med Orders - Current: Current Medications Folic Acid (Folic Acid) 1 mg SUBCUT DAILY [facility] Last Admin: 09/06/16 08:40 Dose: 1 mg Lactated Ringer's (Ringers, Lactated) 1,000 mls @ 150 mls/hr IV ASDIRECTED [facility] Last Admin: 09/07/16 04:53 Dose: 150 mls/hr Insulin Aspart (Novolog) 0 unit SUBCUT Q6H BEE PRN Reason: Protocol Last Admin: 09/07/16 04:50 Dose: Not Given Lorazepam (Ativan) 0 mg IVPUSH Q4H PRN; Protocol PRN Reason: Agitation Morphine Sulfate (Morphine) 2 mg IVPUSH Q2H PRN PRN Reason: Pain (severe 7-10) Last Admin: 09/06/16 22:37 Dose: 2 mg Ondansetron HCl (Zofran) 4 mg IVPUSH Q4H PRN PRN Reason: Nausea Discontinued Medications Sodium Chloride (Normal Saline) 1,000 mls @ 999 mls/hr IV STAT ONE Stop: 09/05/16 14:16 Last Admin: 09/05/16 13:30 Dose: 999 mls/hr Sodium Chloride (Normal Saline) 1,000 mls @ 999 mls/hr IV .Bolus ONE Stop: 09/05/16 14:16 Last Admin: 09/05/16 13:38 Dose: Not Given Sodium Chloride (Normal Saline) 1,000 mls @ 999 mls/hr IV STAT ONE Stop: 09/05/16 17:01 Last Admin: 09/05/16 16:37 Dose: 999 mls/hr Sodium Chloride (Normal Saline) 1,000 mls @ 150 mls/hr IV ASDIRECTED [facility] Last Admin: 09/06/16 03:11 Dose: 250 mls/hr Thiamine HCl 100 mg/ Sodium (Chloride) 101 mls @ 202 mls/hr IV ONETIME ONE Stop: 09/05/16 19:14 Last Admin: 09/05/16 20:04 Dose: 202 mls/hr Potassium Chloride/Sodium Chloride (Normal Saline With 40 Meq Kcl) 1,000 mls @ 150 mls/hr IV ASDIRECTED [facility] Stop: 09/06/16 02:24 Last Admin: 09/05/16 20:13 Dose: 150 mls/hr Morphine Sulfate (Morphine) 2 mg IVPUSH Q2H PRN PRN Reason: Pain (severe 7-10) Stop: 09/06/16 16:37 Last Admin: 09/05/16 20:47 Dose: 2 mg Ondansetron HCl (Zofran) 4 mg IVPUSH ONETIME ONE Stop: 09/05/16 13:17 Last Admin: 09/05/16 13:31 Dose: 4 mg Ondansetron HCl (Zofran) 4 mg IVPUSH ONETIME ONE Stop: 09/05/16 13:34 Last Admin: 09/05/16 13:51 Dose: 4 mg Prochlorperazine Edisylate (Compazine) 5 mg IVPUSH ONETIME ONE Stop: 09/05/16 13:34 Last Admin: 09/05/16 13:51 Dose: 5 mg Thiamine HCl (Vitamin B-1) 100 mg IV DAILY [facility] Last Admin: 09/05/16 18:46 Dose: Not Given - Exam Quality Assessment: DVT prophylaxis General: alert, oriented, cooperative, no acute distress Neck: supple Lungs: Clear to auscultation, Normal respiratory effort Cardiovascular: Regular Rate, Regular Rhythm Abdomen: bowel sounds present, soft, no tenderness, no distension Extremities: no edema, normal pulses Neurological: no new focal deficit Psy/Mental Status: alert, normal affect, normal mood - Problem List & Annotations (1) Acute pancreatitis SNOMED Code(s): 582291462 Code(s): K85.90 - ACUTE PANCREATITIS WITHOUT NECROSIS OR INFECTION, UNSP Status: Acute Current Visit: Yes Qualifiers: Pancreatitis type: biliary Acute pancreatitis complication: no infection or necrosis Qualified Code(s): K85.10 - Biliary acute pancreatitis without necrosis or infection (2) Diarrhea SNOMED Code(s): 04433135 Code(s): R19.7 - DIARRHEA, UNSPECIFIED Status: Acute Current Visit: Yes - Problem List Review Problem List Initiated/Reviewed/Updated: Yes - My Orders Last 24 Hours: My Active Orders 09/06/16 08:15 Lactated Ringers [Ringers, Lactated] 1,000 ml IV ASDIRECTED 09/06/16 12:03 CULTURE STOOL + CAMPY+SHIGATOX [RM] Routine 09/06/16 Dinner Clear Liquid Diet [DIET] - Plan Plan:: 66 yo male admitted with acute pancreatitis. 1. Acute pancreatitis: Likely due to biliary obstruction or stone due to rapid decline of LFTs and lipase. Continue IV fluids and prn morphine for pain management. Bilirubin improving today, 1.6, along with AST 44 and ALT 128. Leukocytosis improved today as well. Lipase 997 today from 16,000 on admission. CL diet started yesterday which he tolerated, will advance to AL today and monitor. 2. Diarrhea: Continues to have frequent loose stools. Stool studies obtained which it appears to be non-infectious. VTE prophylaxis: SCDs Dispo: 2-3 days pending improvement..
[2016-09-07] MEDS ORDERED: Potassium Chloride 20 MEQ Tab.ER PO ONE (08:00)
[2016-09-07] MEDS: Folic Acid 50 MG/10 ML MDV SUBCUT SCH (09:30)
[2016-09-08 05:22] LABS: CHLORIDE,CL 109 mmol/L (98-110); SODIUM,NA 138 mmol/L (136-146)
[2016-09-08] MEDS: Lactated Ringers 1,000 ML IV SCH (06:20)
[2016-09-08] MEDS: Insulin Aspart 100 Units/ML 3 ML Pen SUBCUT SCH ×2 (06:50→11:46)
[2016-09-08] MEDS ORDERED: Potassium Chloride 20 MEQ Tab.ER PO ONE (08:09)
[2016-09-08] MEDS ORDERED: Sodium Chloride 0.9% with KCl 1,000 ML IV SCH (08:15)
[2016-09-08] MEDS: Folic Acid 50 MG/10 ML MDV SUBCUT SCH (08:20)
[2016-09-08] MEDS ORDERED: Loperamide 2 MG Cap PO PRN (11:54)
[2016-09-08 12:02] VITALS: BP 168/68
[2016-09-08 13:46] LABS: CHLORIDE,CL 108 mmol/L (98-110); SODIUM,NA 138 mmol/L (136-146)
--- NOTE | 2016-09-08 14:29 | PCM.DCSUM1 ---
Discharge Summary - Discharge Data Discharge Date: 09/08/16 Discharge Disposition: Home, Self-Care 01 Condition: Good - Patient Summary/Data Hospital Course: Admission diagnosis: Acute pancreatitis, suspected etiology gallstone Hospital Course 66 yo male with pmh of diabetes who presented with one day history of abdominal pain, nausea and vomiting. Patient reports he seldom drinks but did have four beers on the weekend. Lipid panel was normal. CT scan of abdomen reported pancreatitis with no fluid collection. Ultrasound of abdomen reported no cholelithaisis but mildly dilated common bile duct of 8.7 mm. [place] [address] LFTs showed mild transaminitis with bilirubin of 2.8. He was treated with bowel rest and IV fluids. His bilirubin did normalized and abdominal pain resolved. Today his tolerating an oral diet and requesting discharge. He is to follow up with Dr. Beard regarding possible cholecystectomy. - Patient Instructions Diet: Diabetic Diet - Discharge Plan Referrals: Abigail Beard MD [Physician] - 09/25/16 1:30 pm (Follow up in 2-3 weeks.) - Patient Data Vitals - Most Recent: Last Vital Signs Temp 37.1 C 09/08/16 12:00 Pulse 90 09/08/16 12:00 Resp 20 09/08/16 12:00 BP 168/68 H 09/08/16 12:00 Pulse Ox 95 09/08/16 12:00 Weight - Most Recent: 72.3 kg I&O - Last 24 hours: Intake & Output 09/07/16 09/08/16 09/08/16 22:59 06:59 14:59 Intake Total 3082 2945 Output Total 771 2250 Balance 2412 695 Lab Results - Last 24 hrs: Laboratory Results - last 24 hr 09/07/16 09/08/16 09/08/16 Range/Units 17:01 04:37 04:37 WBC 7.80 (4.0-11.0) K/uL RBC 3.79 L (4.50-5.90) M/uL Hgb 10.9 L (13.0-17.0) g/dL Hct 30.8 L (38.0-50.0) % MCV 81.3 (80.0-98.0) fL MCH 28.8 (27.0-32.0) pg MCHC 35.4 (31.0-37.0) g/dL RDW Std Deviation 40.5 (28.0-62.0) fl RDW Coeff of [place] 14 (11.0-15.0) % Plt Count 187 (150-400) K/uL MPV 9.90 (7.40-12.00) fL Neut % (Auto) 75.3 (48.0-80.0) % Lymph % (Auto) 17.2 (16.0-40.0) % [place] % (Auto) 6.0 (0.0-15.0) % Eos % (Auto) 1.4 (0.0-7.0) % Baso % (Auto) 0.1 (0.0-1.5) % Neut # (Auto) 5.9 H (1.4-5.7) K/uL Lymph # (Auto) 1.3 (0.6-2.4) K/uL [place] # (Auto) 0.5 (0.0-0.8) K/uL Eos # (Auto) 0.1 (0.0-0.7) K/uL Baso # (Auto) 0.0 (0.0-0.1) K/uL Nucleated RBC % 0.0 /100WBC Nucleated RBCs # 0 K/uL Sodium 138 (136-146) mmol/L Potassium 2.9 L (3.5-5.1) mmol/L Chloride 109 (98-110) mmol/L Carbon Dioxide 20 L (21-31) mmol/L BUN 9 (6.0-23.0) mg/dL Creatinine 0.7 (0.6-1.5) mg/dL Est Cr Clr Drug Dosing 92.74 mL/min Estimated GFR (MDRD) > 60.0 ml/min Glucose 136 H (60-110) mg/dL POC Glucose 141 H (60-110) mg/dL Calcium 8.4 L (8.8-10.8) mg/dL Magnesium (1.5-2.3) mEq/L Total Bilirubin 1.0 (0.1-1.5) mg/dL AST 20 (5-40) IU/L ALT 83 H (8-54) IU/L Alkaline Phosphatase 90 (40-150) Total Protein 5.5 L (6.0-8.0) g/dL Albumin 3.0 L (3.4-4.8) g/dL Globulin 2.5 (2.0-3.5) g/dL Albumin/Globulin Ratio 1.2 L (1.3-2.8) Lipase 303 H (7-80) U/L 09/08/16 09/08/16 09/08/16 Range/Units 04:37 06:46 11:30 WBC (4.0-11.0) K/uL RBC (4.50-5.90) M/uL Hgb (13.0-17.0) g/dL Hct (38.0-50.0) % MCV (80.0-98.0) fL MCH (27.0-32.0) pg MCHC (31.0-37.0) g/dL RDW Std Deviation (28.0-62.0) fl RDW Coeff of [place] (11.0-15.0) % Plt Count (150-400) K/uL MPV (7.40-12.00) fL Neut % (Auto) (48.0-80.0) % Lymph % (Auto) (16.0-40.0) % [place] % (Auto) (0.0-15.0) % Eos % (Auto) (0.0-7.0) % Baso % (Auto) (0.0-1.5) % Neut # (Auto) (1.4-5.7) K/uL Lymph # (Auto) (0.6-2.4) K/uL [place] # (Auto) (0.0-0.8) K/uL Eos # (Auto) (0.0-0.7) K/uL Baso # (Auto) (0.0-0.1) K/uL Nucleated RBC % /100WBC Nucleated RBCs # K/uL Sodium (136-146) mmol/L Potassium (3.5-5.1) mmol/L Chloride (98-110) mmol/L Carbon Dioxide (21-31) mmol/L BUN (6.0-23.0) mg/dL Creatinine (0.6-1.5) mg/dL Est Cr Clr Drug Dosing mL/min Estimated GFR (MDRD) ml/min Glucose (60-110) mg/dL POC Glucose 120 H 144 H (60-110) mg/dL Calcium (8.8-10.8) mg/dL Magnesium 1.5 (1.5-2.3) mEq/L Total Bilirubin (0.1-1.5) mg/dL AST (5-40) IU/L ALT (8-54) IU/L Alkaline Phosphatase (40-150) Total Protein (6.0-8.0) g/dL Albumin (3.4-4.8) g/dL Globulin (2.0-3.5) g/dL Albumin/Globulin Ratio (1.3-2.8) Lipase (7-80) U/L 09/08/16 Range/Units 13:12 WBC (4.0-11.0) K/uL RBC (4.50-5.90) M/uL Hgb (13.0-17.0) g/dL Hct (38.0-50.0) % MCV (80.0-98.0) fL MCH (27.0-32.0) pg MCHC (31.0-37.0) g/dL RDW Std Deviation (28.0-62.0) fl RDW Coeff of [place] (11.0-15.0) % Plt Count (150-400) K/uL MPV (7.40-12.00) fL Neut % (Auto) (48.0-80.0) % Lymph % (Auto) (16.0-40.0) % [place] % (Auto) (0.0-15.0) % Eos % (Auto) (0.0-7.0) % Baso % (Auto) (0.0-1.5) % Neut # (Auto) (1.4-5.7) K/uL Lymph # (Auto) (0.6-2.4) K/uL [place] # (Auto) (0.0-0.8) K/uL Eos # (Auto) (0.0-0.7) K/uL Baso # (Auto) (0.0-0.1) K/uL Nucleated RBC % /100WBC Nucleated RBCs # K/uL Sodium 138 (136-146) mmol/L Potassium 3.9 (3.5-5.1) mmol/L Chloride 108 (98-110) mmol/L Carbon Dioxide 22 (21-31) mmol/L BUN 10 (6.0-23.0) mg/dL Creatinine 0.7 (0.6-1.5) mg/dL Est Cr Clr Drug Dosing 92.74 mL/min Estimated GFR (MDRD) > 60.0 ml/min Glucose 208 H (60-110) mg/dL POC Glucose (60-110) mg/dL Calcium 9.1 (8.8-10.8) mg/dL Magnesium (1.5-2.3) mEq/L Total Bilirubin (0.1-1.5) mg/dL AST (5-40) IU/L ALT (8-54) IU/L Alkaline Phosphatase (40-150) Total Protein (6.0-8.0) g/dL Albumin (3.4-4.8) g/dL Globulin (2.0-3.5) g/dL Albumin/Globulin Ratio (1.3-2.8) Lipase (7-80) U/L CAILIN Results - Last 24 hrs: Microbiology 09/08/16 10:40 Clostridium difficile Toxin A&B (M) - Final Stool / Feces Negative for C.Diff Toxin/AG 09/06/16 12:03 Stool Culture - Final Stool / Feces NO SALMONELLA, SHIGELLA,OR E.COLI O157 ISOLATED Campylobacter Antigen Assay - Final NEGATIVE CAMPYLOBACTER AG - Final NEGATIVE FOR SHIGA TOXIN 1 - Final NEGATIVE FOR SHIGA TOXIN 2 Med Orders - Current: Current Medications Folic Acid (Folic Acid) 1 mg SUBCUT DAILY [facility] Last Admin: 09/08/16 08:20 Dose: 1 mg Potassium Chloride/Sodium Chloride (Normal Saline With 40 Meq Kcl) 1,000 mls @ 150 mls/hr IV ASDIRECTED BEE Last Admin: 09/08/16 08:32 Dose: 150 mls/hr Insulin Aspart (Novolog) 0 unit SUBCUT TIDAC BEE PRN Reason: Protocol Last Admin: 09/08/16 11:46 Dose: Not Given Loperamide HCl (Imodium) 2 mg PO ASDIRECTED PRN PRN Reason: Diarrhea Last Admin: 09/08/16 12:33 Dose: 2 mg Lorazepam (Ativan) 0 mg IVPUSH Q4H PRN; Protocol PRN Reason: Agitation Morphine Sulfate (Morphine) 2 mg IVPUSH Q2H PRN PRN Reason: Pain (severe 7-10) Last Admin: 09/06/16 22:37 Dose: 2 mg Ondansetron HCl (Zofran) 4 mg IVPUSH Q4H PRN PRN Reason: Nausea Discontinued Medications Sodium Chloride (Normal Saline) 1,000 mls @ 999 mls/hr IV STAT ONE Stop: 09/05/16 14:16 Last Admin: 09/05/16 13:30 Dose: 999 mls/hr Sodium Chloride (Normal Saline) 1,000 mls @ 999 mls/hr IV .Bolus ONE Stop: 09/05/16 14:16 Last Admin: 09/05/16 13:38 Dose: Not Given Sodium Chloride (Normal Saline) 1,000 mls @ 999 mls/hr IV STAT ONE Stop: 09/05/16 17:01 Last Admin: 09/05/16 16:37 Dose: 999 mls/hr Sodium Chloride (Normal Saline) 1,000 mls @ 150 [facility] Last Admin: 09/06/16 03:11 Dose: 250 mls/hr Thiamine HCl 100 mg/ Sodium (Chloride) 101 mls @ 202 mls/hr IV ONETIME ONE Stop: 09/05/16 19:14 Last Admin: 09/05/16 20:04 Dose: 202 mls/hr Potassium Chloride/Sodium Chloride (Normal Saline With 40 Meq Kcl) 1,000 mls @ 150 mls/hr IV ASDIRECTED [facility] Stop: 09/06/16 02:24 Last Admin: 09/05/16 20:13 Dose: 150 mls/hr Lactated Ringer's (Ringers, Lactated) 1,000 mls @ 150 mls/hr IV ASDIRECTED [facility] Last Admin: 09/08/16 06:20 Dose: 150 mls/hr Insulin Aspart (Novolog) 0 unit SUBCUT Q6H [facility] PRN Reason: Protocol Last Admin: 09/07/16 04:50 Dose: Not Given Morphine Sulfate (Morphine) 2 mg IVPUSH Q2H PRN PRN Reason: Pain (severe 7-10) Stop: 09/06/16 16:37 Last Admin: 09/05/16 20:47 Dose: 2 mg Ondansetron HCl (Zofran) 4 mg IVPUSH ONETIME ONE Stop: 09/05/16 13:17 Last Admin: 09/05/16 13:31 Dose: 4 mg Ondansetron HCl (Zofran) 4 mg IVPUSH ONETIME ONE Stop: 09/05/16 13:34 Last Admin: 09/05/16 13:51 Dose: 4 mg Potassium Chloride (Klor-Con M20) 40 meq PO ONETIME ONE Stop: 09/07/16 08:01 Last Admin: 09/07/16 08:44 Dose: 40 meq Potassium Chloride (Klor-Con M20) 40 meq PO ONETIME ONE Stop: 09/08/16 08:10 Last Admin: 09/08/16 08:31 Dose: 40 meq Prochlorperazine Edisylate (Compazine) 5 mg IVPUSH ONETIME ONE Stop: 09/05/16 13:34 Last Admin: 09/05/16 13:51 Dose: 5 mg Thiamine HCl (Vitamin B-1) 100 mg IV DAILY BEE Last Admin: 09/05/16 18:46 Dose: Not Given *Q Meaningful Use (DIS) - VTE *Q VTE Criteria *Q: - Stroke *Q Stroke Criteria *Q: - AMI *Q AMI Criteria *Q:
== END 2016-09-08 15:15 | disposition home or self-care (01) | DRG 282 ==
LOC: MW.ED 12:31 → MW.MS 17:52
PROVIDERS: ADMIT Internal Medicine; ATTEND Internal Medicine
DX: K85.10 Biliary acute pancreatitis without necrosis or infection (principal); R19.7 Diarrhea, unspecified; N17.9 Acute kidney failure, unspecified; E11.9 Type 2 diabetes mellitus without complications
CPT/HCPCS: 36415; 74176; 74176-26; 76700; 76700-26; 80048; 80053; 80061; 82150; 82962; 83690; 83735; 85025; 87046; 87324; 87899; 96361; 96374; 96375; 99285; 99285-25; A9270-GY; J0780; J1815-GY; J2270; J2405; J3411; J3480; J7030; J7040; J7120

== ENCOUNTER 2016-12-21 07:53 | Day surgery (SDC) | payer BC ==
[~2016-12-21 07:53] MED LIST: Lactated Ringers 1,000 ML IV SCH; Sodium Chloride 0.9% 10 ML Syringe FLUSH PRN; Sodium Chloride 0.9% 2.5 ML Syringe FLUSH PRN
--- NOTE | 2016-12-21 08:22 | PCM.PREANE ---
Preanesthetic Assessment - Anesthesia/Transfusion/Family Hx Anesthesia History: Prior Anesthesia Without Reaction Family History of Anesthesia Reaction: No Transfusion History: No Prior Transfusion(s) - Review of Systems General: No Symptoms Pulmonary: No Symptoms Cardiovascular: No Symptoms Gastrointestinal: No Symptoms Neurological: No Symptoms Other: Reports: None - Physical Assessment NPO Status Date: 12/20/16 NPO Status Time: 22:00 O2 Sat by Pulse Oximetry: 98 Respiratory Rate: 16 Vital Signs: Last Vital Signs Temp 36.2 C 12/21/16 08:15 Pulse 88 12/21/16 08:15 Resp 16 12/21/16 08:15 BP 142/80 H 12/21/16 08:15 Pulse Ox 98 12/21/16 08:15 Height: 1.65 m Weight: 71.668 kg ASA Class: 3 Mental Status: Alert & Oriented x3 Airway Class: Mallampati = 2 Dentition: Reports: Missing Tooth/Teeth ROM/Head Extension: Full Lungs: Clear to Auscultation, Normal Respiratory Effort Cardiovascular: Regular Rate, Regular Rhythm - Allergies Allergies/Adverse Reactions: Allergies Allergy/AdvReac Type Severity Reaction Status Date / Time No Known Allergies Allergy Verified 12/19/16 15:48 - Acknowledgements Anesthesia Type Planned: MAC Pt an Appropriate Candidate for the Planned Anesthesia: Yes Alternatives and Risks of Anesthesia Discussed w Pt/Guardian: Yes Pt/Guardian Understands and Agrees with Anesthesia Plan: Yes Additional Comments: type 2 DM, on insulin. In much better controll since starting tid insulin plus peakless insulin several weeks ago. am sugar was 95 yest. PreAnesthesia Questionnaire HEENT History: Reports: Cataract Other HEENT History: uses reading glasses Cardiovascular History: Reports: None Respiratory History: Reports: None Gastrointestinal History: Reports: Chronic Diarrhea, Pancreatitis Genitourinary History: Reports: None Musculoskeletal History: Reports: Back Pain, Chronic Neurological History: Reports: None Psychiatric History: Reports: Anxiety, Depression Endocrine/Metabolic History: Reports: Diabetes, Type II Other Endocrine/Metabolic History: pt reports diabetes but does not take medication for this Hematologic History: Reports: None Immunologic History: Reports: None Oncologic (Cancer) History: Reports: None Dermatologic History: Reports: None - Infectious Disease History Infectious Disease History: Reports: None - Past Surgical History HEENT Surgical History: Reports: Cataract Surgery GI Surgical History: Reports: Appendectomy - SUBSTANCE USE Smoking Status *Q: Former Smoker Tobacco Use Within Last Twelve Months: No Second Hand Smoke Exposure: No Recreational Drug Use History: No - HOME MEDS Home Medications: Home Meds Empagliflozin [Jardiance] 25 mg PO ACBREAKFAST 12/19/16 [History] Insulin Aspart [Novolog Flexpen] 10 unit SQ BIDMEALS 12/19/16 [History] Insulin Aspart [Novolog Flexpen] 12 units SQ ACLUNCH 12/19/16 [History] Insulin Glargine,Hum.Rec.Anlog [Lantus Solostar] 30 unit SQ QPM 12/19/16 [ History] Sertraline HCl 25 mg PO DAILY 12/19/16 [History] - CURRENT (IN HOUSE) MEDS Current Meds: Current Medications Lactated Ringer's (Ringers, Lactated) 1,000 mls @ 125 mls/hr IV ASDIRECTED BEE Last Admin: 12/21/16 08:16 Dose: 125 mls/hr Sodium Chloride (Saline Flush) 10 ml FLUSH ASDIRECTED PRN PRN Reason: Keep Vein Open Sodium Chloride (Saline Flush) 2.5 ml FLUSH ASDIRECTED PRN PRN Reason: Keep Vein Open
[2016-12-21] MEDS ORDERED: Lidocaine 2% 5 ML SDV ONE (10:51)
[2016-12-21] MEDS ORDERED: Propofol 200 MG/20 ML SDV ONE ×2 (10:51→11:07)
[2016-12-21] MEDS ORDERED: Midazolam 1 MG/ML 2 ML SDV ONE (10:51)
[2016-12-21] MEDS ORDERED: fentaNYL 100 MCG/2 ML SDV ONE (10:52)
--- NOTE | 2016-12-21 11:22 | PCM.OPNOTE ---
- General Post-Op/Procedure Note Date of Surgery/Procedure: 12/21/16 Operative Procedure(s): Diagnostic colonoscopy Findings: Diverticulosis throughout colon Pre Op Diagnosis: Diarrhea Post-Op Diagnosis: diverticulosis Anesthesia Technique: Moderate Sedation Primary Surgeon: Abigail Beard Condition: Good
[2016-12-21 12:04] VITALS: BP 103/61
--- NOTE | 2016-12-21 12:35 | PCM.POSTAN ---
POST ANESTHESIA ASSESSMENT - MENTAL STATUS Mental Status: Alert, Oriented - RESPIRATORY Respiratory Status: Respiratory Rate WNL, Airway Patent, O2 Saturation Stable - CARDIOVASCULAR CV Status: Pulse Rate WNL, Blood Pressure Stable - GASTROINTESTINAL GI Status: No Symptoms - POST OP HYDRATION Hydration Status: Adequate & Stable
--- NOTE | 2016-12-21 12:35 | PCM48HPAN ---
Post Anesthesia Note - EVALUATION WITHIN 48HRS OF ANESTHETIC Vital Signs in Normal Range: Yes Patient Participated in Evaluation: Yes Respiratory Function Stable: Yes Airway Patent: Yes Cardiovascular Function Stable: Yes Hydration Status Stable: Yes Pain Control Satisfactory: Yes Nausea and Vomiting Control Satisfactory: Yes Mental Status Recovered: Yes
--- NOTE | 2016-12-21 16:35 | OR ---
SURGEON: ROSALIE WHEELER MD DATE OF PROCEDURE: 12/21/2016 PREOPERATIVE DIAGNOSIS: Change in bowel habits after pancreatitis. POSTOPERATIVE DIAGNOSIS: Diverticulosis. PROCEDURE PERFORMED: Diagnostic colonoscopy. INSTRUMENT USED: Olympus colonoscope. ANESTHESIA: MAC. EXTENT OF EXAM: To the cecum. PREPARATION: Fair. LIMITATIONS: None. INDICATION FOR EXAMINATION: The patient is a 66-year-old male, who was admitted several months ago with acute pancreatitis. After this episode, the patient has had multiple loose stools during the day. He has never had a colonoscopy performed before. Decision was made to perform a diagnostic colonoscopy. The patient and I discussed the procedure, expected perioperative course, and risks including bleeding, infection, or damage to surrounding structures, including perforation. The patient verbalized understanding and wished to proceed. PROCEDURE IN DETAIL: The patient was brought to the endoscopy suite and placed in left lateral decubitus position. A time-out was completed verifying the patient's name, age, date of , allergies, and procedure to be performed. Monitored anesthesia care was induced and continuous oxygen was provided via face mask throughout the procedure. After adequate sedation was achieved, a digital rectal exam was performed. This examination was within normal limits. A well-lubricated colonoscope was then inserted into the rectum and advanced under direct visualization to the level of cecum. The cecum was identified by both visual and anatomic landmarks. A photograph was taken of the cecal cap as well as the scope retroflexed within the cecum. The scope was then fully withdrawn while examining the color, texture, anatomy, and integrity of the mucosa from the cecum to the anal canal. The findings were consistent with diffuse diverticulosis throughout the colon from both the cecum all the way to the distal sigmoid colon. The scope was then brought into the rectum and retroflexed to allow visualization of the anal canal opening. The anal canal opening showed evidence of grade 1 hemorrhoidal disease. A photograph was taken. The scope was then straightened out and removed from the patient. The cecum to anus time was 9 minutes. The patient tolerated the procedure well and was taken to the recovery room in stable condition. ENDOSCOPIC DIAGNOSES: 1. Grade 1 hemorrhoids. 2. Diverticulosis. RECOMMENDATIONS: Follow up in clinic in 2 weeks. We will proceed with laparoscopic cholecystectomy next week. KATINA HAAS /[id number]
== END 2016-12-21 12:15 | disposition home or self-care (01) ==
LOC: MW.SDS 07:53
PROVIDERS: ATTEND Surgery
DX: K57.30 Diverticulosis of large intestine without perforation or abscess without bleeding (principal); K64.0 First degree hemorrhoids; M19.019 Primary osteoarthritis, unspecified shoulder; F32.9 Major depressive disorder, single episode, unspecified; E11.9 Type 2 diabetes mellitus without complications; E78.5 Hyperlipidemia, unspecified; Z79.4 Long term (current) use of insulin; Z79.84 Long term (current) use of oral hypoglycemic drugs; Z79.899 Other long term (current) drug therapy; Z90.49 Acquired absence of other specified parts of digestive tract; Z87.891 Personal history of nicotine dependence
CPT/HCPCS: 45378; 82962; J2250; J3010; J7120; J2704

== ENCOUNTER 2016-12-28 06:50 | Day surgery (SDC) | payer BC ==
[~2016-12-28 06:50] MED LIST changes: +ceFAZolin 2 GM in Premix Bag 1 BAG IV ONE
[2016-12-28] MEDS ORDERED: Bupivacaine 0.5% 30 ML SDV ONE (06:51)
[2016-12-28] MEDS ORDERED: fentaNYL 100 MCG/2 ML SDV ONE ×2 (07:25→09:49)
[2016-12-28] MEDS ORDERED: Propofol 200 MG/20 ML SDV ONE (07:25)
[2016-12-28] MEDS ORDERED: Midazolam 1 MG/ML 2 ML SDV ONE (07:25)
[2016-12-28] MEDS ORDERED: Rocuronium 10 MG/ML 10 ML Syringe ONE (07:26)
[2016-12-28] MEDS ORDERED: Ondansetron 4 MG/2 ML SDV ONE (07:26)
[2016-12-28] MEDS ORDERED: Ketorolac 30 MG/ML SDV ONE (07:26)
[2016-12-28] MEDS ORDERED: Neostigmine Methylsulfate 1 MG/ML 5 ML Syringe ONE (07:26)
[2016-12-28] MEDS ORDERED: Dexamethasone 4 MG/ML 5 ML MDV ONE (07:26)
[2016-12-28] MEDS ORDERED: Scopolamine 1.5 MG Transdermal Patch TRDERM PRN (07:33)
--- NOTE | 2016-12-28 07:35 | PCM.PREANE ---
Preanesthetic Assessment - Anesthesia/Transfusion/Family Hx Anesthesia History: Prior Anesthesia Reaction Family History of Anesthesia Reaction: No Transfusion History: No Prior Transfusion(s) - Review of Systems General: No Symptoms Pulmonary: No Symptoms Cardiovascular: No Symptoms Gastrointestinal: No Symptoms Neurological: No Symptoms Other: Reports: None - Physical Assessment NPO Status Date: 12/27/16 O2 Sat by Pulse Oximetry: 97 Respiratory Rate: 16 Vital Signs: Last Vital Signs Temp 36.3 C 12/28/16 07:28 Pulse 74 12/28/16 07:28 Resp 16 12/28/16 07:28 BP 119/71 12/28/16 07:28 Pulse Ox 97 12/28/16 07:28 Height: 1.65 m Weight: 72.3 kg ASA Class: 2 Mental Status: Alert & Oriented x3 Airway Class: Mallampati = 2 Dentition: Reports: [place](s), Broken Tooth/Teeth ROM/Head Extension: Full Lungs: Clear to Auscultation, Normal Respiratory Effort Cardiovascular: Regular Rate, Regular Rhythm - Allergies Allergies/Adverse Reactions: Allergies Allergy/AdvReac Type Severity Reaction Status Date / Time No Known Allergies Allergy Verified 12/19/16 15:48 - Anesthesia Plan Pre-Op Medication Ordered: Other (piggyback of D5) - Acknowledgements Anesthesia Type Planned: General Anesthesia Pt an Appropriate Candidate for the Planned Anesthesia: Yes Alternatives and Risks of Anesthesia Discussed w Pt/Guardian: Yes Pt/Guardian Understands and Agrees with Anesthesia Plan: Yes PreAnesthesia Questionnaire HEENT History: Reports: None Other HEENT History: uses reading glasses Cardiovascular History: Reports: None Respiratory History: Reports: None Gastrointestinal History: Reports: Chronic Diarrhea, Pancreatitis Genitourinary History: Reports: None Musculoskeletal History: Reports: None Neurological History: Reports: None Psychiatric History: Reports: None Endocrine/Metabolic History: Reports: Diabetes, Type II Other Endocrine/Metabolic History: pt reports diabetes but does not take medication for this Hematologic History: Reports: None Immunologic History: Reports: None Oncologic (Cancer) History: Reports: None Dermatologic History: Reports: None - Infectious Disease History Infectious Disease History: Reports: None - Past Surgical History GI Surgical History: Reports: Appendectomy - SUBSTANCE USE Smoking Status *Q: Never Smoker Tobacco Use Within Last Twelve Months: No Second Hand Smoke Exposure: No Recreational Drug Use History: No - HOME MEDS Home Medications: Home Meds Empagliflozin [Jardiance] 25 mg PO ACBREAKFAST 12/19/16 [History] Insulin Aspart [Novolog Flexpen] 10 unit SQ BIDMEALS 12/19/16 [History] Insulin Aspart [Novolog Flexpen] 12 units SQ ACLUNCH 12/19/16 [History] Insulin Glargine,Hum.Rec.Anlog [Lantus Solostar] 30 unit SQ QPM 12/19/16 [ History] Sertraline HCl 25 mg PO DAILY 12/19/16 [History] Psyllium [place] [Metamucil] 660 gm PO DAILY #1 container 12/21/16 [Rx] - CURRENT (IN HOUSE) MEDS Current Meds: Current Medications Lactated Ringer's (Ringers, Lactated) 1,000 mls @ 125 mls/hr IV ASDIRECTED BEE Last Admin: 12/28/16 07:27 Dose: 125 mls/hr Dextrose/Water (Dextrose 5% In Water) 1,000 mls @ 50 mls/hr IV ASDIRECTED BEE Scopolamine (Transderm-Scop) 1.5 mg TRDERM Q72H PRN PRN Reason: Nausea/Vomiting Sodium Chloride (Saline Flush) 10 ml FLUSH ASDIRECTED PRN PRN Reason: Keep Vein Open Sodium Chloride (Saline Flush) 2.5 ml FLUSH ASDIRECTED PRN PRN Reason: Keep Vein Open Discontinued Medications Bupivacaine HCl (Marcaine 0.5%) Confirm Administered Dose 30 ml .ROUTE .STK-MED ONE Stop: 12/28/16 06:52 Dexamethasone (Dexamethasone) Confirm Administered Dose 20 mg .ROUTE .STK-MED ONE Stop: 12/28/16 07:27 Fentanyl (Sublimaze) Confirm Administered Dose 200 mcg .ROUTE .STK-MED ONE Stop: 12/28/16 07:26 Glycopyrrolate () Confirm Administered Dose 1 mg .ROUTE .STK-MED ONE Stop: 12/28/16 07:27 Cefazolin Sodium/Dextrose 2 gm (/ Premix) 50 mls @ 100 mls/hr IV ONETIME ONE Stop: 12/26/16 13:31 Ketorolac Tromethamine (Toradol) Confirm Administered Dose 30 mg .ROUTE .STK- MED ONE Stop: 12/28/16 07:27 Lidocaine HCl (Xylocaine-Mpf 1%) Confirm Administered Dose 5 ml .ROUTE .STK-MED ONE Stop: 12/28/16 07:27 Midazolam HCl (Versed 1 Mg/Ml) Confirm Administered Dose 2 mg .ROUTE .STK-MED ONE Stop: 12/28/16 07:26 Neostigmine Methylsulfate (Neostigmine) Confirm Administered Dose 5 mg .ROUTE .STK-MED ONE Stop: 12/28/16 07:27 Ondansetron HCl (Zofran) Confirm Administered Dose 4 mg .ROUTE .STK-MED ONE Stop: 12/28/16 07:27 Propofol (Diprivan 20 Ml) Confirm Administered Dose 200 mg .ROUTE .STK-MED ONE Stop: 12/28/16 07:26 Rocuronium [place] (Zemuron) Confirm Administered Dose 100 mg .ROUTE .STK-MED ONE Stop: 12/28/16 07:27
[2016-12-28] MEDS ORDERED: Dextrose 5% in Water 1,000 ML IV SCH (07:45)
[2016-12-28] MEDS ORDERED: Dextrose 5% in Water 500 ML IV SCH (08:15)
--- NOTE | 2016-12-28 10:32 | PCM.OPNOTE ---
- General Post-Op/Procedure Note Date of Surgery/Procedure: 12/28/16 Operative Procedure(s): Laparoscopic cholecystectomy Findings: Inflamed gallbladder that had dense adhesions to the surrounding omentum. The cystic duct was short and thick. Pre Op Diagnosis: Gallstone pancreatitis Post-Op Diagnosis: same Anesthesia Technique: General ET Tube Primary Surgeon: Abigail Beard Fluid Replacement, Intraop: 2,200 Output, Urine Amount: 50 EBL in mLs: 20 Condition: Good
[2016-12-28] MEDS ORDERED: Acetaminophen 1,000 MG in Premix Bag 1 BAG IV ONE (10:39)
--- NOTE | 2016-12-28 11:39 | PCM.POSTAN ---
POST ANESTHESIA ASSESSMENT - MENTAL STATUS Mental Status: Alert, Oriented, Somnolent - RESPIRATORY Respiratory Status: Respiratory Rate WNL, Airway Patent, O2 Saturation Stable - CARDIOVASCULAR CV Status: Pulse Rate WNL, Blood Pressure Stable, Elevated Pulse Rate - GASTROINTESTINAL GI Status: No Symptoms - PAIN Pain Score: 2 - POST OP HYDRATION Hydration Status: Adequate & Stable
[2016-12-28 12:52] VITALS: BP 132/78
--- NOTE | 2016-12-28 13:13 | OR ---
SURGEON: ROSALIE WHEELER MD DATE OF PROCEDURE: 12/28/2016 PREOPERATIVE DIAGNOSIS: Gallstone pancreatitis. POSTOPERATIVE DIAGNOSIS: Gallstone pancreatitis. PROCEDURE PERFORMED: Laparoscopic cholecystectomy. ANESTHESIA: General endotracheal anesthesia. FLUIDS: 2200 mL crystalloid. ESTIMATED BLOOD LOSS: 20 mL. URINE OUTPUT: 50 mL. FINDINGS: Chronically inflamed appearing gallbladder densely adhered to the surrounding omentum. The cystic duct was short and very wide. COMPLICATIONS: None. INDICATIONS: The patient is a 66-year-old male, who presented to the hospital several months ago with pancreatitis. The patient had an elevation in his liver function tests suggesting gallstone pancreatitis. The patient underwent numerous tests that did not show any evidence of cholelithiasis. Full medical workup showed no other reason or cause for his pancreatitis. A decision was made to proceed with removal of the gallbladder in case this was the cause of his pancreatitis. The patient and I discussed the cholecystectomy procedure in length. We discussed the laparoscopic in open method to removing the gallbladder. I will attempt laparoscopic, but should I be unable to do so safely I will convert to open. The patient and I discussed the risks, including bleeding, infection, or damage to surrounding structures. The patient verbalized understanding and wishes to proceed. PROCEDURE IN DETAIL: The patient was brought into the OR and placed on the OR table in supine position. A time-out was completed verifying the patient's name, age, date of , allergies, and procedure to be performed. General endotracheal anesthetic was induced. The patient's left arm was tucked at his side and a Kilpatrick catheter placed. The abdomen was prepped and draped in the usual standard fashion. The patient had a short torso, so I made my first incision below the umbilicus along the inferior midline. The area was 1st anesthetized with 0.5% Marcaine plain. Using cautery and blunt dissection, I dissected down to the level of the fascia. Fascia was elevated with Hannah's and sharply incised with the Barron scissors. The peritoneum was grasped with a tonsil elevated and cut using a Metzenbaum scissors. Entry into the abdomen was noted and a 12 mm Ellis port was inserted into the belly and secured in place. This was secured in place by two 0 Vicryl sutures that were placed in the fascia on either side. The abdomen was insufflated and a 5 mm 30-degree scope inserted into the abdomen. The area underneath my initial trocar site was inspected and no damage was noted to surrounding structures. Three 5 mm ports were then placed under direct visualization in the following locations; one in the epigastric area, one in the right subcostal margin along the midclavicular line, and one along the right flank. The patient was then placed into reverse Trendelenburg position and airplaned slightly to the left. The top of the gallbladder was grasped with an atraumatic grasper. It was then elevated above the dome of the liver. The body of the gallbladder was densely adhered to the surrounding omentum. These adhesions were taken down using a right angle and hook cautery. I dissected down to the level of the infundibulum. The infundibulum was grasped with an atraumatic grasper and retracted laterally to the right and downward. There was still a large amount of inflammation and adhesions at the base of the gallbladder. I took great care to gently dissect away these using a right angle and a suction device that I used as a Kittner. I was able to clear off the distal 3rd of the cystic plate and identified the cystic artery and duct. The cystic duct appeared very short and enlarged circumferentially. The cystic artery had two branches, a posterior and anterior branch that went directly into the gallbladder. In order to ensure my anatomic view, I called in my senior solutions architect, Dr. Kiet Dudley, to confirm my anatomy. He agreed that the cystic duct appeared short and the vessel I had identified appeared to be the cystic artery. In order to obtain greater length from my cystic duct, I doubly clipped and ligated the cystic artery branches as they entered the gallbladder. I then attempted to clip the cystic duct; however, given its large circumference using a 5 mm stapler, was not going to be possible. I up-sized my epigastric 5 mm port with a 12 mm port. I then took an articulating endoscopic stapling device loaded with a 45 mm blue load and inserted into the abdomen. I was able to pass the stapler safely across the cystic duct without compromising the common bile duct. I positioned my endoscopic stapling device as high up as possible on the cystic duct, so that the cut line would actually be along the infundibulum. The stapling device was safely fired and the staple line appeared intact. I then grasped the gallbladder and used electrocautery to take this to excise this from the gallbladder fossa. This was quite difficult given a large amount of inflammation along the back wall of the gallbladder. I entered the gallbladder twice during my dissection and I was able to remove the gallbladder in its entirety. Gallbladder was placed in an EndoCatch bag and pulled out through the infraumbilical port site. My Ellis trocar was replaced in the abdomen and I reinspected my surgical site. There was a small amount of bleeding along the gallbladder fossa, which was controlled adequately using electrocautery. The abdomen was irrigated copiously with normal saline, which was then suctioned out. I placed a piece of Surgicel in the gallbladder fossa to ensure good hemostasis postoperatively. The 11 mm port site in the epigastric area was closed using a Rj-Patrick needle and 0 Vicryl suture. The remainder of the ports were removed and the abdomen allowed to desufflate. The fascia at the 12 mm port site was then closed with interrupted 0 Vicryl sutures. The skin at the two 12 mm port sites were closed with interrupted 3-0 Vicryl in the subcutaneous fat layer and a running 4-0 Monocryl suture in the subcuticular layer. The two 5 mm port sites were closed with interrupted 4-0 Monocryl suture. Steri-Strips and sterile dressings were applied. The patient tolerated the procedure well and was taken to the PACU in stable condition. KATINA HAAS /[id number] CYNDEE
== END 2016-12-28 11:50 | disposition home or self-care (01) ==
LOC: MW.SDS 06:50
PROVIDERS: ATTEND Surgery
PROC: 0FT44ZZ Resection of Gallbladder, Percutaneous Endoscopic Approach (ICD-10-PCS; principal; 2016-12-28)
DX: K81.1 Chronic cholecystitis (principal); F32.9 Major depressive disorder, single episode, unspecified; E11.9 Type 2 diabetes mellitus without complications; E78.5 Hyperlipidemia, unspecified; Z79.4 Long term (current) use of insulin; Z79.899 Other long term (current) drug therapy; Z90.49 Acquired absence of other specified parts of digestive tract; Z87.891 Personal history of nicotine dependence
CPT/HCPCS: 47562; 82962; A9270; J1100; J1885; J2250; J2405; J3010; J7060; J7120; 00790; 88304; J2704